=== PATIENT | male | born 1990 | race Caucasian/White ===

== ENCOUNTER 2016-12-29 08:55 | Emergency (ER) | payer OTHER, BC ==
[~2016-12-29] VITALS: Ht 177.8 cm; Wt 65.0 kg
[~2016-12-29 08:55] MED LIST: CEPH500C3 PO; HYDR2.5T PO; IBUP-232 PO; LORT5TAB PO; METH750T2 PO; Z.0.NO CURRENT MEDS
[2016-12-29 08:58] VITALS: BP 135/73; PULSE 120; RESP 15; TEMP 98.1; O2SAT 95
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
[2016-12-29] MEDS ORDERED: NAPROXEN 500 MG TAB PO ONE (10:00)
[2016-12-29] MEDS ORDERED: CYCLOBENZAPRINE HCL 10 MG TAB PO ONE (10:00)
[2016-12-29 10:10] VITALS: PULSE 92
[2016-12-29 11:12] VITALS: RESP 18
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
[2016-12-29] MEDS ORDERED: NAPR500T PO (11:28)
[2016-12-29] MEDS ORDERED: CYCL5TAB PO (11:28)
== END 2016-12-29 11:35 | disposition home or self-care (01) ==
LOC: NEPB 08:55
DX: S16.1XXA Strain of muscle, fascia and tendon at neck level, initial encounter (principal); R51 Headache; V49.40XA Driver injured in collision with unspecified motor vehicles in traffic accident, initial encounter; Y92.488 Other paved roadways as the place of occurrence of the external cause
CPT/HCPCS: 70450; 72125; 99284; L0150